=== PATIENT | male | born 1995 | race American Indian/Alaskan Native ===

== ENCOUNTER 2017-09-27 19:25 | Emergency (ER) | payer MEDICARE ==
[2017-09-27 19:50] VITALS: BP 140/81
[2017-09-27] MEDS ORDERED: ZOFRAN ODT PO ONE (21:49)
[2017-09-27] MEDS ORDERED: ULTRAM PO ONE (21:50)
--- NOTE | 2017-09-27 22:05 | Emergency Department Report ---
Minor Respiratory - HPI Chief Complaint: Upper Respiratory Infection Stated Complaint: COLD/FLU LIKE SX, 1 WEEK Time Seen by Provider: 09/27/17 21:47 Duration: 1 week Pain Location: Nose (congestion), Other (headache) Severity: moderate Minor Respiratory: Yes Rhinorrhea, Yes Able to Tolerate Fluids, Yes Cough, Yes Sick Contacts (mother had the flu last month), Yes Fever, No Sore Throat, No Ear Pain, No Hemoptysis, No Chest Pain, No Shortness of Breath Other History: This is a 22 y.o. male that presents with cough, fever, congestion, and headache for 1 week. Mother had the flu last month and worried he may have it now. She is giving dayquil and theraflu for symptom relief. He was doing fine with OTC medication until today. She brought him in because he was complaining of headache today, which is a new symptom. He is eating and tolerating fluids fine. Denies chest pain, body aches, SOB, N/V/D, and weakness. ED Review of Systems ROS: Stated complaint: COLD/FLU LIKE SX, 1 WEEK Other details as noted in HPI Constitutional: chills, fever. denies: malaise ENT: congestion. denies: ear pain, throat pain, epistaxis Respiratory: cough. denies: orthopnea, shortness of breath, wheezing Cardiovascular: denies: chest pain, palpitations Gastrointestinal: denies: abdominal pain, nausea, vomiting, diarrhea, hematochezia Musculoskeletal: denies: back pain, joint swelling, arthralgia, myalgia Neurological: headache. denies: weakness, numbness, paresthesias ED Past Medical Hx - Past Medical History Hx Seizures: Yes Additional medical history: developmental delay - Social History Smoking Status: Never Smoker Substance Use Type: None - Medications Home Medications: Home Medications Medication Instructions Recorded Confirmed Last Taken Type Benzonatate 200 mg PO TID PRN #30 capsule 09/27/17 Unknown Rx Cetirizine HCl [Zyrtec] 10 mg PO DAILY #30 tablet 09/27/17 Unknown Rx Fluticasone [Flonase] 1 spray NS QDAY #1 bottle 09/27/17 Unknown Rx Minor Respiratory Exam - Exam General: Vital signs noted. No distress. Alert and acting appropriately. HEENT: Yes Pharyngeal Erythema, Yes Moist Mucous Membranes, Yes Rhinorrhea ( clear discharge, turbinates red and swollen bilateral), Yes Frontal Tenderness, No Pharyngeal Exudates, No Conjuctival Injection, No Maxillary Tenderness Ear: Neither TM Bulge, Neither TM Erythema, Neither EAC Pain, Neither EAC Discharge Neck: Yes Supple, No Adenopathy Lungs: Yes Good Air Exchange, Yes Cough, No Wheezes, No Ronchi, No Stridor, No Labored Respirations, No Retractions, No Use of Accessory Muscles, No Other Abnormal Lung Sounds Heart: Yes Regular, No Murmur Abdomen: Yes Normal Bowel Sounds, No Tenderness, No Peritoneal Signs Skin: No Rash, No Edema Neurologic: Alert and oriented, no deficits. Musculoskeletal: Unremarkable. ED Course Vital Signs 09/27/17 19:47 Temperature 99 F Pulse Rate 87 Respiratory 20 Rate Blood Pressure 140/81 O2 Sat by Pulse 97 Oximetry ED Medical Decision Making - Medical Decision Making This is a 22 y.o. male, developmental delay, accompanied by mother with cough, fever, congestion for 1 week and headache for 1 day. Patient is stable and was examined by me. No signs of distress noted. Given toradol 50 mg po and zofran 4 mg ODT po once in ER. Physical assessment susceptible of nasopharyngitis and migraine. Advised mother will not test for influenza because it is beyond 48 since symptoms started for tamiflu prescription. Start cetirizine, benzonatate, and flonase. Discussed plan with patient and mother. No further questions noted by the patient. Discharged home in stable condition. Follow up with PCP in 24- 72 hours. Critical care attestation.: If time is entered above; I have spent that time in minutes in the direct care of this critically ill patient, excluding procedure time. ED Disposition Clinical Impression: Upper respiratory infection Qualifiers: URI type: acute nasopharyngitis (common cold) Qualified Code(s): J00 - Acute nasopharyngitis [common cold] Migraine Qualifiers: Migraine type: without aura Status migrainosus presence: without status migrainosus Intractability: not intractable Qualified Code(s): G43.009 - Migraine without aura, not intractable, without status migrainosus Disposition: - TO HOME OR SELFCARE Is pt being admited?: No Does the pt Need Aspirin: No Condition: Stable Instructions: Viral Syndrome (ED), Upper Respiratory Infection (ED), Cold Symptoms (ED), Migraine Headache (ED) Additional Instructions: Increase fluid intake, wash hands frequently, and rest. Take ibuprofen, tylenol, or naproxen at the start of headache. Minimize caffeine intake. Eat at scheduled times or 3 meals a day with snacks. Follow up with Primary Care Provider if symptoms don't resolve in 3 days. Return to ER if fever, SOB, wheezing, and Nausea or Vomiting. Prescriptions: Benzonatate 200 mg PO TID PRN #30 capsule PRN Reason: Cough Cetirizine HCl [Zyrtec] 10 mg PO DAILY #30 tablet Fluticasone [Flonase] 1 spray NS QDAY #1 bottle Referrals: [facility] [Outside] - 3-5 Days [facility] [Outside] - 3-5 Days [facility] [Outside] - 3-5 Days Time of Disposition: 22:21 Print Language: POLISH
== END 2017-09-27 22:28 | disposition home or self-care (01) ==
LOC: ED 19:25
DX: J00 Acute nasopharyngitis [common cold] (principal); G43.009 Migraine without aura, not intractable, without status migrainosus; R56.9 Unspecified convulsions
CPT/HCPCS: 99282; Q0162

== ENCOUNTER 2020-12-17 16:39 | Emergency (ER) | payer MEDICAID ==
[2020-12-17] MEDS ORDERED: IBUPROFEN 600 MG TAB PO ONE ×2 (16:47→16:48)
[2020-12-17] MEDS ORDERED: ACETAMINOPHEN 500 MG TAB ONE (16:47)
[2020-12-17] MEDS ORDERED: ACETAMINOPHEN 500 MG TAB PO ONE (16:48)
--- NOTE | 2020-12-17 16:52 | Event Note ---
ED Screening Note Date of service: 12/17/20 Time: 16:49 ED Screening Note: Patient is a 25 yo AA male with a h/o development delay who presents to the ED with c/o acute onset persistent severe right shoulder pain after he slipped off a roller blade and fell down, and tried to brace himself with his right arm, and now unable to bear weight on right arm due to severe right shoulder pain with mild deformity. Patient denies head or neck injury, dizziness, syncope, chest pain, back pain, LOC or nausea and vomiting, numbness and tingling or weakness of right arm. Physical exam reveals severe right shoulder tenderness with limited ROM due to pain. This initial assessment/diagnostic orders/clinical plan/treatment(s) is/are subject to change based on patients health status, clinical progression and re- assessment by fellow clinical providers in the ED. Further treatment and workup at subsequent clinical providers discretion. Patient/guardian urged not to elope from the ED as their condition may be serious if not clinically assessed and managed. Initial orders include: Right shoulder x-ray; Motrin, Tylenol
--- NOTE | 2020-12-17 17:13 | XRay Report ---
RIGHT SHOULDER 3 VIEW(S) INDICATION / CLINICAL INFORMATION: Pain - fall - possible dislocation COMPARISON: None available. FINDINGS: BONES / JOINT(S): There is anteroinferior dislocation of the right humeral head which is perched on t he anterior inferior glenoid. No displaced fracture is identified. No significant arthritis. SOFT TISSUES: No significant abnormality. ADDITIONAL FINDINGS: None. IMPRESSION: Right anteroinferior shoulder dislocation. Signer Name: Antonio Hernandez MD Signed: 12/17/2020 5:08 PM Workstation Name: [id number]
[2020-12-17] MEDS ORDERED: propofoL 200 MG/20 ML VIAL IV ONE (18:14)
[2020-12-17] MEDS ORDERED: SODIUM CHLORIDE 0.9% 1000 ML 1,000 ML IV ONE (18:14)
[2020-12-17] MEDS ORDERED: KETAMINE 500 MG/5 ML VIAL MDV IV ONE (18:14)
--- NOTE | 2020-12-17 18:17 | Emergency Department Report ---
HPI - General Chief Complaint: Extremity Injury, Upper Time Seen by Provider: 12/17/20 18:01 - HPI HPI: This is a 25-year-old -N[place]alese male who presents to the emergency department with complaint of right shoulder pain. Patient went to a skate park with his brother and fell with an outstretched right arm trying to catch himself. He told his mother that something "popped." The patient has a history of developmental delay but is conversive. He also has a history of seizures. No previous history of shoulder dislocation. It has been many hours and the patient last ate any food. He did not take anything, nor was given anything, for his symptoms prior to presentation today. ED Past Medical Hx - Past Medical History Previous Medical History?: Yes Hx Seizures: Yes Additional medical history: developmental delay - Surgical History Past Surgical History?: Yes - Social History Smoking Status: Never Smoker Substance Use Type: None - Medications Home Medications: Home Medications Medication Instructions Recorded Confirmed Last Taken Type Benzonatate 200 mg PO TID PRN #30 capsule 09/27/17 Unknown Rx Cetirizine HCl [Zyrtec 10mg tab] 10 mg PO DAILY #30 tablet 09/27/17 Unknown Rx Fluticasone [Flonase] 1 spray NS QDAY #1 bottle 09/27/17 Unknown Rx ED Review of Systems ROS: Stated complaint: DISLOCATED SHOULDER Other details as noted in HPI Comment: All other systems reviewed and negative Constitutional: denies: chills, fever Eyes: denies: eye pain, vision change ENT: denies: ear pain, throat pain Respiratory: denies: cough, shortness of breath Cardiovascular: denies: chest pain, palpitations Gastrointestinal: denies: abdominal pain, vomiting Genitourinary: denies: dysuria, discharge Musculoskeletal: arthralgia. denies: back pain Skin: denies: rash, lesions Neurological: denies: headache, weakness Physical Exam - Physical Exam Vital Signs: Vital Signs 12/17/20 12/17/20 12/17/20 16:43 16:51 16:52 Temperature 99.6 F Pulse Rate 70 Respiratory 18 18 18 Rate Blood Pressure 127/69 [Right] O2 Sat by Pulse 99 Oximetry Physical Exam: GENERAL: The patient is well-developed well-nourished. HENT: Normocephalic. Atraumatic. Patient has moist mucous membranes. EYES: Extraocular motions are intact. NECK: Supple. Trachea is midline. CHEST/LUNGS: Clear to auscultation. There is no respiratory distress noted. HEART/CARDIOVASCULAR: Regular. There is no tachycardia. There is no murmur. ABDOMEN: Abdomen is soft, nontender. Patient has normal bowel sounds. SKIN: Skin is warm and dry. NEURO: The patient is awake, alert, and cooperative. The patient has no focal neurologic deficits. Normal speech. MUSCULOSKELETAL: Tenderness to palpation of the right shoulder. Decreased range of motion of the right upper extremity secondary to pain in the right shoulder. The patient is holding his arm in internal rotation. Radial pulse +2/4 and capillary refill less than 2 seconds. ED Course Vital Signs 12/17/20 12/17/20 12/17/20 16:43 16:51 16:52 Temperature 99.6 F Pulse Rate 70 Respiratory 18 18 18 Rate Blood Pressure 127/69 [Right] O2 Sat by Pulse 99 Oximetry - Moderate Sedation Indications: fracture/dislocation redu ASA Class: I Mallampati Airway Score: 1 Time of Last PO Intake: 13:00 Preparation: panel monitor applied, pulse oximeter, capnometry used, supplemental O2 applied, suction/airway equipment at bedside, IV secured Ketamine: IV Ketamine Dose: 40 IV Propofol Dose (mgs): 40 Complications: none Patient Tolerated Procedure: well - Orthopedic Joint Reduction Joint #1 Consent Obtained: written consent Time Out Performed: Yes Side: right Joint Reduction Location: shoulder Analgesia: moderate sedation Shoulder Technique Used (if applicable): traction/counter-traction, external rotation Post-Reduction Neuro Exam: intact Post-Reduction Vascular Exam: intact Post Reduction X-Ray Obtained: Yes Post Reduction X-Ray Results: reduced Splint Applied: Yes Patient Tolerated Procedure: well ED Medical Decision Making - Radiology Data Radiology results: image reviewed interpreted by me: X-ray of the right shoulder shows an anterior inferior dislocation. Post reduction 1 view x-ray of the right shoulder shows appropriate reduction of the humeral head within the glenohumeral joint. - Medical Decision Making Patient presents with a right shoulder dislocation confirmed on x-ray. Con scious/moderate sedation was done as per the procedure section and I was able to successfully reduce the right shoulder dislocation. The patient was neurovascularly intact both before and after the procedure. He was placed in a shoulder immobilizer. We monitored him until he was back at his baseline mental status. Patient will be discharged to follow-up with an orthopedist. Critical Care Time: No Critical care attestation.: If time is entered above; I have spent that time in minutes in the direct care of this critically ill patient, excluding procedure time. ED Disposition Clinical Impression: Shoulder dislocation Qualifiers: Encounter type: initial encounter Laterality: right Qualified Code(s): S43.004A - Unspecified dislocation of right shoulder joint, initial encounter Disposition: TO HOME OR SELFCARE Is pt being admited?: No Condition: Stable Instructions: Shoulder Dislocation, Moderate Conscious Sedation, Adult, How to Use a Shoulder Immobilizer Additional Instructions: Please follow-up with an orthopedist in the next few days. I have given you a referral for 2 different local orthopedic groups, Dr. Christopher and [facility]. I would remain in the shoulder immobilizer until follow-up with the orthopedist. Return to the emergency department with any worsening of your symptoms, new or concerning symptoms not addressed during this current emergency department visit, or with any acute distress. Referrals: MALOU CHU MD [Primary Care Provider] - 3-5 Days FRANKY CHRISTOPHER MD [Staff Physician] - 3-5 Days [facility] [Provider Group] - 3-5 Days Time of Disposition: 20:19
[2020-12-17] MEDS ORDERED: MORPHINE 4 MG/1 ML INJ IV ONE (18:42)
[2020-12-17 20:01] VITALS: BP 134/87
--- NOTE | 2020-12-17 20:08 | XRay Report ---
RIGHT SHOULDER ONE VIEW POSTREDUCTION INDICATION / CLINICAL INFORMATION: shoulder dislocation reduction. COMPARISON: None available. FINDINGS: The right humeral head has been relocated with respect to the glenoid. No obvious fracture is seen Signer Name: Armin Hernandez MD FACR Signed: 12/17/2020 8:04 PM Workstation Name: [id number]
== END 2020-12-17 20:43 | disposition home or self-care (01) ==
LOC: ED 16:39
DX: S43.004A Unspecified dislocation of right shoulder joint, initial encounter (principal); R56.9 Unspecified convulsions; Z79.899 Other long term (current) drug therapy; W19.XXXA Unspecified fall, initial encounter; Y93.89 Activity, other specified; Y92.89 Other specified places as the place of occurrence of the external cause; Y99.8 Other external cause status
CPT/HCPCS: 23650; 73020; 73030; 96374; 99283; J2270; J2704; J7030

== ENCOUNTER 2021-05-02 21:34 | Emergency (ER) | payer MEDICAID ==
[2021-05-02] MEDS ORDERED: MIDAZOLAM 5 MG/5 ML INJ MDV IV ONE (21:59)
[2021-05-02] MEDS ORDERED: SODIUM CHLORIDE 0.9% 1000 ML 1,000 ML IV ONE (21:59)
[2021-05-02] MEDS ORDERED: fentaNYL 100 MCG/2 ML INJ IV ONE (21:59)
[2021-05-02] MEDS ORDERED: ONDANSETRON 4 MG/2 ML INJ IV ONE (21:59)
--- NOTE | 2021-05-02 22:03 | Emergency Department Report ---
ED Upper Extremity Inj HPI - General Chief Complaint: Shoulder Injury Stated Complaint: RT SHOULDER DISLOCATION Time Seen by Provider: 05/02/21 21:53 Source: patient Mode of arrival: Ambulatory Limitations: No Limitations - History of Present Illness Initial Comments: Patient is 25-year-old male with history of autism. Patient brought to the emergency room by his mother for evaluation of right shoulder injury and possible dislocation. Patient mother stated that he was playing basketball and all of a sudden started that he heard a pop and since then he is unable to use his right shoulder. Patient had a right shoulder dislocation few months ago. Patient mother denied any other injuries. MD Complaint: Injury to:: right, shoulder -: hour(s) (3) Other Extremity Injury: Shoulder: Right Other Injuries: none Place: outdoors Improves With: immobilization Worsens With: movement of extremity Context: sports-related injury Associated Symptoms: denies other symptoms - Related Data Previous Rx's Medication Instructions Recorded Last Taken Type Benzonatate 200 mg PO TID PRN #30 capsule 09/27/17 Unknown Rx Cetirizine HCl [Zyrtec 10mg tab] 10 mg PO DAILY #30 tablet 09/27/17 Unknown Rx Fluticasone [Flonase] 1 spray NS QDAY #1 bottle 09/27/17 Unknown Rx Naproxen [Naprosyn] 500 mg PO BID #14 tablet 05/02/21 Unknown Rx Allergies Allergy/AdvReac Type Severity Reaction Status Date / Time No Known Allergies Allergy Verified 05/02/21 21:41 ED Review of Systems ROS: Stated complaint: RT SHOULDER DISLOCATION Other details as noted in HPI Comment: All other systems reviewed and negative Constitutional: denies: chills, fever Respiratory: denies: cough, shortness of breath, SOB with exertion Cardiovascular: denies: chest pain, palpitations Gastrointestinal: denies: abdominal pain, nausea, vomiting, diarrhea, constipation Musculoskeletal: denies: back pain Neurological: denies: headache, weakness, numbness, paresthesias, confusion, abnormal gait ED Past Medical Hx - Past Medical History Previous Medical History?: Yes Hx Seizures: Yes Additional medical history: developmental delay - Surgical History Past Surgical History?: No - Social History Smoking Status: Never Smoker Substance Use Type: None - Medications Home Medications: Home Medications Medication Instructions Recorded Confirmed Last Taken Type Benzonatate 200 mg PO TID PRN #30 capsule 09/27/17 Unknown Rx Cetirizine HCl [Zyrtec 10mg tab] 10 mg PO DAILY #30 tablet 09/27/17 Unknown Rx Fluticasone [Flonase] 1 spray NS QDAY #1 bottle 09/27/17 Unknown Rx Naproxen [Naprosyn] 500 mg PO BID #14 tablet 05/02/21 Unknown Rx ED Physical Exam - General Limitations: No Limitations General appearance: alert, in no apparent distress - Head Head exam: Present: atraumatic, normocephalic, normal inspection - Eye Eye exam: Present: normal appearance, PERRL - ENT ENT exam: Present: normal exam, normal orophraynx, mucous membranes moist - Neck Neck exam: Present: normal inspection, full ROM. Absent: tenderness, meningismus - Respiratory Respiratory exam: Present: normal lung sounds bilaterally - Cardiovascular Cardiovascular Exam: Present: regular rate, normal rhythm, normal heart sounds - GI/Abdominal GI/Abdominal exam: Present: soft, normal bowel sounds. Absent: distended, tenderness, guarding, rebound, rigid, organomegaly, mass, bruit, pulsatile mass, hernia - Expanded Upper Extremity Exam Right Shoulder Exam: Present: tenderness, dislocation. Absent: swelling, abrasion, laceration, ecchymosis, deformity, crepidus, erythema, tenderness over AC joint Upper Arm exam: Present: normal inspection, full ROM Elbow exam: Present: normal inspection, full ROM. Absent: tenderness Forearm Wrist exam: Present: normal inspection, full ROM. Absent: tenderness, swelling Hand Wrist exam: Present: normal inspection, full ROM. Absent: tenderness Neuro motor exam: Present: wrist extension intact, thumb opposition intact, thumb IP flexion intact, thumb adduction intact, fingers 2-5 abduction intact Neurosensory exam: Present: 2-point discrimination, radial nerve intact, ulnar nerve intact, median nerve intact Vascular: Present: normal capillary refill - Back Exam Back exam: Present: normal inspection, full ROM. Absent: CVA tenderness (R), CVA tenderness (L) - Neurological Exam Neurological exam: Present: alert, oriented X3, CN II-XII intact, normal gait, reflexes normal. Absent: motor sensory deficit - Psychiatric Psychiatric exam: Present: normal mood - Skin Skin exam: Present: warm, intact, normal color ED Course Vital Signs 05/02/21 05/02/21 05/02/21 21:40 22:07 22:53 Temperature 98.7 F 99.2 F Pulse Rate 80 91 H Pulse Rate [ Intra-Procedure ] Pulse Rate [ Post-Procedure] Pulse Rate [Pre 76 -Procedure] Respiratory 16 12 Rate Respiratory Rate [Intra- Procedure] Respiratory Rate [Post- Procedure] Respiratory 24 Rate [Pre- Procedure] Blood Pressure 154/90 Blood Pressure [Intra- Procedure] Blood Pressure 151/91 [Left] Blood Pressure [Post-Procedure ] Blood Pressure 159/109 [Pre-Procedure] O2 Sat by Pulse 99 99 Oximetry O2 Sat by Pulse Oximetry [ Intra-Procedure ] O2 Sat by Pulse Oximetry [Post -Procedure] O2 Sat by Pulse 100 Oximetry [Pre- Procedure] 05/02/21 05/02/21 22:57 23:25 Temperature Pulse Rate Pulse Rate [ 93 H Intra-Procedure ] Pulse Rate [ 61 Post-Procedure] Pulse Rate [Pre -Procedure] Respiratory Rate Respiratory 23 Rate [Intra- Procedure] Respiratory 14 Rate [Post- Procedure] Respiratory Rate [Pre- Procedure] Blood Pressure Blood Pressure 148/93 [Intra- Procedure] Blood Pressure [Left] Blood Pressure 132/77 [Post-Procedure ] Blood Pressure [Pre-Procedure] O2 Sat by Pulse Oximetry O2 Sat by Pulse 100 100 Oximetry [ Intra-Procedure ] O2 Sat by Pulse 100 Oximetry [Post -Procedure] O2 Sat by Pulse 100 100 Oximetry [Pre- Procedure] - Reevaluation(s) Reevaluation #1: 05/03/21 00:09 Patient now is alert, oriented x3 no acute distress. Vital signs stable. Patient will be discharged with his mother in stable condition. ED Medical Decision Making - Radiology Data Radiology results: report reviewed - Medical Decision Making Patient is 25-year-old male with history of autism. Patient brought to the emergency room by his mother for evaluation of right shoulder injury and possible dislocation. Patient mother stated that he was playing basketball and all of a sudden started that he heard a pop and since then he is unable to use his right shoulder. Patient had a right shoulder dislocation few months ago. Patient mother denied any other injuries. Right shoulder x-ray showed a dislocation. Using moderate sedation, right shoulder successfully reduced using traction countertraction. No complication. Postreduction x-rays showed successful reduction. Since this is a second episode of dislocation I advised patient mother's to follow-up with Dr. Christopher, orthopedics on-call for possible surgery. Critical care attestation.: If time is entered above; I have spent that time in minutes in the direct care of this critically ill patient, excluding procedure time. ED Disposition Clinical Impression: Recurrent dislocation, right shoulder Disposition: 01 HOME / SELF CARE / HOMELESS Is pt being admited?: No Condition: Stable Instructions: Recurrent Shoulder Laxity and Instability, Moderate Conscious Sedation, Adult, Shoulder Dislocation, [id number] Prescriptions: Naproxen [Naprosyn] 500 mg PO BID #14 tablet Referrals: PRIMARY CARE, [Primary Care Provider] - 3-5 Days FRANKY CHRISTOPHER MD [Staff Physician] - 3-5 Days
--- NOTE | 2021-05-02 22:32 | XRay Report ---
RIGHT SHOULDER, 2 VIEWS INDICATION / CLINICAL INFORMATION: shoulder injury. COMPARISON: None available. FINDINGS: There is an anterior dislocation of the glenohumeral joint. The humeral head is located inferior to t he glenoid. A single radiograph labeled "postreduction" shows successful reduction of the anterior dislocation w ith appropriate positioning of the glenohumeral joint. IMPRESSION: 1. Initial images demonstrated an anterior dislocation, with subsequent imaging showing successful re duction. 2. No fracture identified. Signer Name: Dyan Oviedo MD Signed: 05/02/2021 10:28 PM Workstation Name: [id number]
[2021-05-02] MEDS ORDERED: ETOMIDATE 20 MG/10 ML INJ IV ONE ×2 (22:45→22:46)
--- NOTE | 2021-05-02 23:23 | XRay Report ---
RIGHT SHOULDER 1 VIEW(S) INDICATION / CLINICAL INFORMATION: Post reduction. COMPARISON: This study 11:17 PM was compared to earlier study 10:18 PM same day FINDINGS: The humeral head has been reduced and now projects in expected position. Chronic Hill-Sachs impaction fracture again noted. Signer Name: Warren Fajardo MD Signed: 05/02/2021 11:19 PM Workstation Name: [facility] [employer] [id number]
[2021-05-03 00:12] VITALS: BP 126/72
== END 2021-05-03 00:32 | disposition home or self-care (01) ==
LOC: ED 21:34
DX: S43.004A Unspecified dislocation of right shoulder joint, initial encounter (principal); X58.XXXA Exposure to other specified factors, initial encounter; Y93.89 Activity, other specified; Y92.89 Other specified places as the place of occurrence of the external cause; Y99.8 Other external cause status
CPT/HCPCS: 23650; 73020; 73030; 96361; 96374; 96375; 99283; J2250; J2405; J3010; J7030

== ENCOUNTER 2021-06-21 09:41 | Outpatient (CLI) | payer MEDICAID ==
--- NOTE | 2021-06-21 10:58 | Magnetic Resonance Report ---
MRI RIGHT SHOULDER WITHOUT CONTRAST INDICATION / CLINICAL INFORMATION: UNSPECIFIED DISLOCATION OF RIGHT SHOULDER JOINT. TECHNIQUE: Multiplanar, multisequence MR images were obtained. No contrast used. COMPARISON: None available. FINDINGS: SUPRASPINATUS: Mild attenuation however no full-thickness tear INFRASPINATUS: No significant abnormality. SUBSCAPULARIS: No significant abnormality. BICEPS TENDON, LONG HEAD: No significant abnormality. GLENOID LABRUM: There is irregularity within the anterior inferior labrum best seen on axial images ARTICULAR CARTILAGE: No significant abnormality. JOINT SPACE AND CAPSULE: No significant abnormality. ACROMION and A.C. JOINT: No significant abnormality. SUBACROMIAL/SUBDELTOID SPACE: Trace fluid in subacromial space BONES: There is impaction fracture within the superior lateral humeral head suggesting Hill-Sachs im paction injury No fracture. No osseous lesion. SOFT TISSUES: No significant abnormality. ADDITIONAL FINDINGS: None. IMPRESSION: 1. Hill-Sachs impaction fracture within the superior lateral humeral head. 2. Mild irregularity and anterior inferior labrum suggesting anterior inferior labral tear. MR arthro gram could be performed for further evaluation if indicated. Signer Name: Fitz Ramirez MD Signed: 06/21/2021 10:53 AM Workstation Name: [id number]
== END 2021-06-21 09:42 | disposition home or self-care (01) ==
LOC: MRI 09:41
PROVIDERS: ATTEND Orthopaedic Surgery
DX: S42.291A Other displaced fracture of upper end of right humerus, initial encounter for closed fracture (principal); S43.004A Unspecified dislocation of right shoulder joint, initial encounter; X58.XXXA Exposure to other specified factors, initial encounter; Y93.89 Activity, other specified; Y92.89 Other specified places as the place of occurrence of the external cause; Y99.8 Other external cause status

== ENCOUNTER 2021-09-23 07:25 | Day surgery (SDC) | payer MEDICAID ==
[~2021-09-23 07:25] MED LIST: ACETAMINOPHEN 500 MG TAB PO SCH; CELECOXIB 200 MG CAP PO NR; GABAPENTIN 300 MG CAP PO NR; LACTATED RINGERS 1,000 ML IV SCH; MIDAZOLAM 2 MG/2 ML INJ IV NR; SCOPOLAMINE TRANSDERMAL PATCH 72 HR TD NR; fentaNYL 100 MCG/2 ML INJ IV PRN
[2021-09-23] MEDS ORDERED: ceFAZolin/Water 2 GM/20 ML 2 GM/20 ML SYRINGE IV NR (08:00)
[2021-09-23] MEDS ORDERED: EPINEPHrine/PF 1 MG/1 ML INJ ONE (08:13)
[2021-09-23] MEDS ORDERED: methylPREDNISolone ACETATE 40 MG/1 ML INJ ONE (08:13)
[2021-09-23] MEDS ORDERED: BUPIVACAINE/PF (0.25%) 2.5 MG/ML 30 ML VIAL INFILTRATI ONE (08:13)
== END 2021-09-23 07:26 | disposition home or self-care (01) ==
LOC: OR 07:25
PROVIDERS: ATTEND Orthopaedic Surgery
DX: M24.411 Recurrent dislocation, right shoulder (principal); G43.909 Migraine, unspecified, not intractable, without status migrainosus; Z53.8 Procedure and treatment not carried out for other reasons; Z98.890 Other specified postprocedural states
CPT/HCPCS: J0171; J1030; J3490

== ENCOUNTER 2022-01-06 07:52 | Day surgery (SDC) | payer MEDICAID ==
[~2022-01-06 07:52] MED LIST changes: -ACETAMINOPHEN 500 MG TAB PO SCH; -CELECOXIB 200 MG CAP PO NR; -GABAPENTIN 300 MG CAP PO NR; -LACTATED RINGERS 1,000 ML IV SCH; -MIDAZOLAM 2 MG/2 ML INJ IV NR; -SCOPOLAMINE TRANSDERMAL PATCH 72 HR TD NR; +ceFAZolin/STERILE WATER 2 GM/20 ML SYRINGE IV SCH; -fentaNYL 100 MCG/2 ML INJ IV PRN
[2022-01-06] MEDS ORDERED: LACTATED RINGERS 1,000 ML ONE (08:13)
[2022-01-06] MEDS ORDERED: HYDROmorphone 0.5 MG/0.5 ML INJ IV PRN ×2 (10:28)
[2022-01-06] MEDS ORDERED: ONDANSETRON 4 MG/2 ML INJ IV PRN (10:28)
--- NOTE | 2022-01-06 10:29 | Anesthesia Day of Surgery ---
Anesthesia Day of Surgery - Day of Surgery Patient Examined: Yes Patient H&P Reviewed: Yes Patient is NPO: Yes
--- NOTE | 2022-01-06 10:30 | Anesthesia Consultation ---
Anesthesia Consult and Med Hx Date of service: 01/06/22 - Airway Anesthetic Teeth Evaluation: Good ROM Head & Neck: Adequate Mental/Hyoid Distance: Adequate Mallampati Class: Class II Intubation Access Assessment: Good - Pre-Operative Health Status ASA Pre-Surgery Classification: ASA2 Proposed Anesthetic Plan: General Nerve Block: IS - Pulmonary Hx Smoking: No Hx Sleep Apnea: No (RA PRE SCREEN LOW RISK) - Cardiovascular System Hx Hypertension: No Hx Heart Attack/AMI: No - Central Nervous System Hx Seizures: Yes (SEIZURES AT -LAST SEIZURE 2-3 YEARS AGO. NOT TAKING MEDICATION) Hx Psychiatric Problems: No - Gastrointestinal Hx Gastroesophageal Reflux Disease: No - Hematic Hx Anemia: No Hx Sickle Cell Disease: No - Other Systems Hx Alcohol Use: No Hx Substance Use: No Hx Cancer: No Hx Obesity: No - Additional Comments Anesthesia Medical History Comments: Mother present at BS. Developmental delays. [id number]
[2022-01-06] MEDS ORDERED: BUPIVACAINE/PF (0.5%) 5 MG/1 ML 30 ML VIAL INFILTRATI ONE (10:46)
[2022-01-06] MEDS ORDERED: dexAMETHasone 4 MG/ML VIAL ONE (10:46)
[2022-01-06] MEDS ORDERED: LIDOCAINE PF 100 MG/5 ML (CARDIAC SYRINGE) IV ONE (10:47)
[2022-01-06] MEDS ORDERED: propofoL 200 MG/20 ML VIAL IV ONE (10:48)
[2022-01-06] MEDS ORDERED: fentaNYL 100 MCG/2 ML INJ IV ONE (11:00)
[2022-01-06] MEDS ORDERED: MIDAZOLAM 2 MG/2 ML INJ IV SCH (11:00)
[2022-01-06] MEDS ORDERED: LACTATED RINGERS 1,000 ML IV SCH (11:00)
[2022-01-06] MEDS ORDERED: methylPREDNISolone ACETATE 40 MG/1 ML INJ ONE ×2 (11:13→11:14)
[2022-01-06] MEDS ORDERED: EPINEPHrine/PF 1 MG/1 ML INJ ONE (11:13)
[2022-01-06] MEDS ORDERED: BUPIVACAINE-EPINEPHRINE/PF 0.25%-1:200,000 (10 ML) VIAL INFILTRATI ONE (11:14)
[2022-01-06] MEDS ORDERED: NEOSTIGMINE 10MG/10 ML INJ MDV ONE (12:15)
[2022-01-06] MEDS ORDERED: diphenhydrAMINE 50 MG/ML VIAL ONE (12:15)
[2022-01-06] MEDS ORDERED: GLYCOPYRROLATE 0.4 MG/2 ML INJ ONE ×2 (12:15)
[2022-01-06] MEDS ORDERED: EPINEPHrine/PF 1 MG/1 ML INJ IV ONE (12:39)
[2022-01-06] MEDS ORDERED: SODIUM CHLORIDE 0.9% IRRIG SOLN 3000 ML IR ONE (14:00)
--- NOTE | 2022-01-06 14:32 | Procedure Note ---
Date of procedure: 01/06/22 Pre-op diagnosis: Recurrent right shoulder dislocation Post-op diagnosis: same Procedure: Arthroscopy right shoulder with repair of Bankart lesion using suture anchors Procedure The patient was brought to the OR placed on the OR table in supine position fo llowing induction intubation by anesthesia patient was placed in the left lateral decubitus position at which point the right upper extremity was prepped and draped in the usual sterile manner. An axillary roll under the left armpit Next a timeout procedure was done to identify the patient and the correct operative site arthroscopic portals were made beginning posteriorly using a #15 blade a stab wound was made to mid 2 cm distal to the posterior edge of the acromion the arthroscope was then inserted into the glenohumeral joint inspection of the joint revealed no obvious rotator cuff tear however patient was noted to have a tear involving the anterior labrum beginning at the 3 o'clock position down to the 6 o'clock position, he was also noted to have a Hill-Sachs lesion moderate degree involving the humeral head. Next following this a spinal needle was used to locate our anterior portal, an inflow cannula was inserted followed our surgical instrument to clean and freshened up the velvet oid surface. Fiberwire suture passed through the anterior capsule and cinchlocked next a drill bit used to create a tunnel for suture anchor at 6'o clock position. The suture anchor placed within glenoid articular surface and secured. Next [address] at the 4'o clock and 3'o clock positions. Traction removed and arm taken thru ROM and found to be stable. Stab wounds irrigated and closed, routine post op dressing applied.. Anesthesia: GETA Surgeon: FRANKY HARRY (Kunal Parker, 1st assist) Estimated blood loss: minimal Pathology: none Condition: stable Disposition: PACU
[2022-01-06 15:34] VITALS: BP 129/86
--- NOTE | 2022-01-06 16:39 | Post Anesthesia Evaluation ---
- Post Anesthesia Evaluation Patient Participated: Yes Airway Patent: Yes Stable Respiratory Function: Yes Nausea/Vomiting: No Temp > 96.8F: Yes Pain Manageable: Yes Adequeate Hydration: Yes Anesthesia Complications: No Block Receding Appropriately: Yes Patient on Ventilator: No
== END 2022-01-06 16:00 | disposition home or self-care (01) ==
LOC: OR 07:52
PROVIDERS: ATTEND Orthopaedic Surgery
DX: M24.411 Recurrent dislocation, right shoulder (principal); Z79.899 Other long term (current) drug therapy; Z98.890 Other specified postprocedural states; Z91.81 History of falling
CPT/HCPCS: 29806; 64415; C1713; J0171; J0690; J1030; J1100; J1200; J1815; J2001; J2704; J2710; J3010; J3490; J7120; 64450